=== PATIENT | female | born 1950 | race African-American/Black ===

== ENCOUNTER 2020-08-01 11:16 | Emergency (ER) | payer MEDICARE ==
[2020-08-01 11:46] VITALS: BP 99/55
--- NOTE | 2020-08-01 11:53 | Emergency Department Report ---
- General Chief Complaint: Medical Clearance Stated Complaint: FEELING SICK/COVID TEST Source: patient Mode of arrival: Ambulatory Limitations: Language Barrier - History of Present Illness Initial Comments: 70-year-old female presents emergency department complaining of cough and vague aches and was advised to come to emerge department to get a Covid test. Reports no fever no nausea no vomiting no chest pain no palpitations no odynophagia or dysphagia no hematuria no no dysuria. No abdominal pain. Primary reason for coming emergency department is to obtain a COVID-19 test Severity: mild Quality: dull Consistency: constant Associated Symptoms: denies: fever, chills, stiff neck, shortness of breath, abdominal pain, rash, right sweats, weight loss - Related Data Home Medications Medication Instructions Recorded Confirmed Last Taken Unobtainable 12/30/16 12/30/16 Unknown Allergies Allergy/AdvReac Type Severity Reaction Status Date / Time No Known Allergies Allergy Unverified 12/30/16 12:47 ED Review of Systems ROS: Stated complaint: FEELING SICK/COVID TEST Other details as noted in HPI Comment: All other systems reviewed and negative ED Past Medical Hx - Past Medical History Previous Medical History?: Yes Hx Hypertension: Yes Hx CVA: No Hx Heart Attack/AMI: No Hx Congestive Heart Failure: No Hx Diabetes: No Hx Deep Vein Thrombosis: No Hx Pulmonary Embolism: No Hx GERD: No Hx Liver Disease: No Hx Renal Disease: No Hx Sickle Cell Disease: No Hx Arthritis: Yes Hx Headaches / Migraines: Yes Hx Seizures: No Hx Kidney Stones: No Hx Psychiatric Treatment: No Hx Asthma: Yes Hx COPD: No Hx Tuberculosis: No Hx Dementia: No Hx HIV: No - Surgical History Past Surgical History?: No Hx Coronary Stent: No Hx Open Heart Surgery: No Hx Pacemaker: No Hx Internal Defibrillator: No Hx Cholecystectomy: No Hx Appendectomy: No Hx Breast Surgery: No - Social History Smoking Status: Never Smoker - Medications Home Medications: Home Medications Medication Instructions Recorded Confirmed Last Taken Type Unobtainable 12/30/16 12/30/16 Unknown History ED Physical Exam - General Limitations: Language Barrier General appearance: alert, in no apparent distress - Head Head exam: Present: atraumatic, normocephalic - Eye Eye exam: Present: normal appearance, PERRL, EOMI Pupils: Present: normal accommodation - ENT ENT exam: Present: mucous membranes moist - Neck Neck exam: Present: normal inspection, full ROM - Respiratory Respiratory exam: Present: normal lung sounds bilaterally. Absent: respiratory distress - Cardiovascular Cardiovascular Exam: Present: regular rate, normal rhythm. Absent: systolic murmur, diastolic murmur, rubs, gallop - GI/Abdominal GI/Abdominal exam: Present: soft, normal bowel sounds - Extremities Exam Extremities exam: Present: normal inspection - Back Exam Back exam: Present: normal inspection - Neurological Exam Neurological exam: Present: alert, oriented X3 - Psychiatric Psychiatric exam: Present: normal affect, normal mood - Skin Skin exam: Present: warm, dry, intact, normal color. Absent: rash ED Course Vital Signs 08/01/20 11:45 Temperature 99.1 F Pulse Rate 91 H Respiratory 18 Rate Blood Pressure 99/55 O2 Sat by Pulse 96 Oximetry ED Medical Decision Making - Radiology Data Radiology results: report reviewed Referring Physician:LILIAN DALALPatient Name:SARKIS SARGENTPatient ID:[id number] of :[id number]:FemaleAccession:[id number] Date:[id number] Status:Finalized Findings [facility] [address] [place] [address] XRay Report Signed Patient: SARKIS SARGENT MR#: [id number] : 1950 Acct:[id number] Age/Sex: 70 / F ADM Date: 08/01/20 Loc: ED Attending Dr: Ordering Physician: MEKHI CUMMIGNS Date of Service: 08/01/20 Procedure(s): XR chest routine 2V Accession Number(s): [id number] cc: MEKHI CUMMINGS Fluoro Time In Minutes: CHEST 2 VIEWS INDICATION / CLINICAL INFORMATION: cough. COMPARISON: None available. FINDINGS: SUPPORT DEVICES: None. HEART / MEDIASTINUM: No significant abnormality. LUNGS / PLEURA: There is bibasilar atelectasis and linear scarring within the left lung base. No pneumothorax. ADDITIONAL FINDINGS: No significant additional findings. IMPRESSION: No acute cardiopulmonary abnormality. Mild bibasilar atelectasis and linear scarring in the left lung base. Signer Name: Roldan Coley MD Signed: 08/01/2020 12:13 PM Workstation Name: [id number] Transcribed By: SS Dictated By: ROLDAN COLEY Electronically Authenticated By: ROLDAN COLEY Signed Date/Time: 08/01/20 1213 DD/ 1207 TD/TT: - Medical Decision Making This patient presents to the emergency department with fever and lower respiratory symptoms concerning for viral syndrome including flu and COVID-19. Patient has suspicion and is for COVID-19 infection. Differential diagnosis includes other viral causes of lower respiratory symptoms, pneumonia, asthma, bronchitis. Patient is well-appearing with acceptable vitals, lacks comorbidities admission and a reassuring physical examination and is safe to be discharged home nasal swab for COVID testing is recommended. Provide strict return precautions and instructions on self isolation/quarantine and anticipatory guidance. Critical care attestation.: If time is entered above; I have spent that time in minutes in the direct care of this critically ill patient, excluding procedure time. ED Disposition Clinical Impression: URI (upper respiratory infection) Disposition: DC-01 TO HOME OR SELFCARE Is pt being admited?: No Does the pt Need Aspirin: No Condition: Stable Instructions: Cool Mist Vaporizer, Upper Respiratory Infection, Adult, COVID- 19: How to Protect Yourself and Others - CDC, Prevent the Spread of COVID-19 if You Are Sick - CDC Additional Instructions: Patient new symptoms and history is recommended that you obtain an outpatient Covid test just to ensure that there is no further spread of your symptoms and related symptoms of Covid. Your chest x-ray is clear no pneumonia Referrals: GENTRY DALY MD [Staff Physician] - 3-5 Days
--- NOTE | 2020-08-01 12:17 | XRay Report ---
CHEST 2 VIEWS INDICATION / CLINICAL INFORMATION: cough. COMPARISON: None available. FINDINGS: SUPPORT DEVICES: None. HEART / MEDIASTINUM: No significant abnormality. LUNGS / PLEURA: There is bibasilar atelectasis and linear scarring within the left lung base. No pneu mothorax. ADDITIONAL FINDINGS: No significant additional findings. IMPRESSION: No acute cardiopulmonary abnormality. Mild bibasilar atelectasis and linear scarring in the left lung base. Signer Name: Efrain Coley MD Signed: 08/01/2020 12:13 PM Workstation Name: [id number]
== END 2020-08-01 14:23 | disposition home or self-care (01) ==
LOC: ED 11:16
DX: J06.9 Acute upper respiratory infection, unspecified (principal); I10 Essential (primary) hypertension; M13.88 Other specified arthritis, other site; G43.909 Migraine, unspecified, not intractable, without status migrainosus; J45.909 Unspecified asthma, uncomplicated
CPT/HCPCS: 71046

== ENCOUNTER 2020-08-02 07:57 | Emergency (ER) | payer MEDICARE ==
[2020-08-02] MEDS ORDERED: SODIUM CHLORIDE 0.9% 500 ML 500 ML IV ONE (08:18)
[2020-08-02] MEDS ORDERED: ACETAMINOPHEN 325 MG TAB PO ONE (08:20)
[2020-08-02 08:47] LABS: Basophils % (Auto) 0.5 % (0.0-1.8); Eosinophils % (Auto) 0.1 % (0.0-4.3); Hematocrit 39.2 % (30.3-42.9); Hemoglobin 13.3 gm/dl (10.1-14.3); Lymphocytes # (Auto) 0.9 K/mm3 (1.2-5.4); Lymphocytes % (Auto) 26.8 % (13.4-35.0); Mean Corpuscular HGB Conc 34 % (30-34); Mean Corpuscular Volume 89 fl (79-97); Monocytes # (Auto) 0.3 K/mm3 (0.0-0.8); Monocytes % (Auto) 8.9 % (0.0-7.3); Platelet Count 160 K/mm3 (140-440); Red Blood Count 4.39 M/mm3 (3.65-5.03); Red Cell Distribution Width 12.8 % (13.2-15.2)
[2020-08-02 08:55] LABS: INR 0.95 (0.87-1.13)
[2020-08-02 09:02] LABS: Alanine Aminotransferase 9 units/L (7-56); Albumin 4.1 g/dL (3.9-5); BUN/Creatinine Ratio 17; Blood Urea Nitrogen 12 mg/dL (7-17); Calcium 8.8 mg/dL (8.4-10.2); Hemolysis Index 4
--- NOTE | 2020-08-02 09:25 | XRay Report ---
CHEST 2 VIEWS INDICATION / CLINICAL INFORMATION: possible Sepsis. COMPARISON: 08/01/2020. FINDINGS: SUPPORT DEVICES: None. HEART / MEDIASTINUM: Stable. LUNGS / PLEURA: Persistent bibasilar atelectasis and linear scarring in the left lung base. No pneumo thorax. ADDITIONAL FINDINGS: No significant additional findings. IMPRESSION: 1. No significant change. Signer Name: Efrain Coley MD Signed: 08/02/2020 9:21 AM Workstation Name: [id number]
[2020-08-02 15:08] VITALS: BP 110/63
== END 2020-08-02 16:37 | disposition left against medical advice (07) ==
LOC: ED 07:57
DX: R53.1 Weakness (principal); Z53.21 Procedure and treatment not carried out due to patient leaving prior to being seen by health care provider
CPT/HCPCS: 36415; 71046; 80053; 82140; 82805; 85025; 85610; 87040; 93005